=== PATIENT | female | born 1980 | race Caucasian/White ===

== ENCOUNTER 2018-03-29 12:19 | Emergency (ER) | payer OTHER ==
[2018-03-29 12:27] VITALS: BMI 31.3
--- NOTE | 2018-03-29 12:41 | ED PDOC ---
Arrival/HPI - General Time Seen by Provider: 03/29/18 12:28 Historian: Patient - History of Present Illness Narrative History of Present Illness (Text): 03/29/18 12:38 A 38 year old Croatian-speaking female, whose past medical history includes shingles, accompanied by father whom translated, presents to the emergency department complaining of nausea and left ear pain. Patient states she went to [facility] twice. The first visit, patient was treated for Otitis Media Externa with Augmentin and ear drops; and the 2nd visit had rash to left ear. Patient denies any other complaints at this time. No PMD Past Medical History - Provider Review Nursing Documentation Reviewed: Yes Family/Social History - Physician Review Nursing Documentation Reviewed: Yes Family/Social History: No Known Family HX Allergies/Home Meds Allergies/Adverse Reactions: Allergies No Known Allergies Allergy (Verified 03/29/18 12:27) Review of Systems - Physician Review All systems were reviewed & negative as marked: Yes - Review of Systems Constitutional: absent: Fevers ENT: Other (left ear pain). absent: Sore Throat, Rhinorrhea Respiratory: absent: Cough Gastrointestinal: Nausea. absent: Abdominal Pain Neurological: absent: Headache Physical Exam Mental Status: Positive for: Alert and Oriented X 3 - Systems Exam Head: Present: Atraumatic, Normocephalic Pupils: Present: PERRL Extroacular Muscles: Present: EOMI Conjunctiva: Present: Normal Ears: Present: Other (shingles rash to left ear, going towards left cheek). No : Normal Canal (discharge to left ear canal) Mouth: Present: Moist Mucous Membranes Respiratory/Chest: Present: Clear to Auscultation, Good Air Exchange. No: Respiratory Distress, Accessory Muscle Use Cardiovascular: Present: Regular Rate and Rhythm, Normal S1, S2. No: Murmurs Abdomen: No: Tenderness, Distention, Peritoneal Signs Neurological: Present: GCS=15, CN II-XII Intact, Speech Normal Skin: Present: Warm, Dry, Normal Color. No: Rashes Psychiatric: Present: Alert, Oriented x 3, Normal Insight, Normal Concentration Medical Decision Making ED Course and Treatment: 03/29/18 12:42 Impression: 38 year old female with left ear pain and nausea. Physical exam shows shingles rash to left ear going towards left cheek, left ear canal discharge. Plan: -- Head CT -- IAC CT -- Dilaudid -- Toradol -- Zofran -- IV Fluids -- Reassess and disposition Progress Notes: 03/29/2018 14:[address] IMPRESSION: No acute findings. Dictator: Jasvir Najera MD 03/29/2018 14:[address] IMPRESSION: There is narrowing of the left external auditory canal. Soft tissue edema and inflammatory changes are also seen of the left ear. The mastoid air cells are clear. Dictator: Jasvir Najera MD - RAD Interpretation Radiology Orders: 03/29/18 13:17 HEAD W/O CONTRAST [CT] Stat IAC W/O CONTRAST [CT] Stat - Medication Orders Current Medication Orders: Discontinued Medications Hydromorphone HCl (Dilaudid) 1 mg IVP STAT STA Stop: 03/29/18 12:43 Last Admin: 03/29/18 15:25 Dose: Hydromorphone HCl (Dilaudid) 1 mg IVP STAT STA Stop: 03/29/18 12:49 Last Admin: 03/29/18 14:32 Dose: 1 mg Sodium Chloride (Sodium Chloride 0.9%) 2,000 mls @ 999 mls/hr IV .Q2H1M STA Stop: 03/29/18 14:42 Last Admin: 03/29/18 13:43 Dose: 999 mls/hr eMAR Start Stop Document 03/29/18 13:43 GMI (Rec: 03/29/18 13:43 [id number] Intravenous Solution Start Date 03/29/18 Start Time 13:43 End Date 03/29/18 End time 15:43 Total Infusion Time 120 Ketorolac Tromethamine (Toradol) 30 mg IVP STAT STA Stop: 03/29/18 12:43 Last Admin: 03/29/18 13:58 Dose: 30 mg Re-Assess: [facility] Pain Assessment Document 03/29/18 14:58 GMI (Rec: 03/29/18 15:24 [email or web address] Pain Reassessment Is this a pain reassessment? Yes Sleep Is patient sleeping during reassessment? No Presence of Pain Presence of Pain No Ondansetron HCl (Zofran Inj) 4 mg IVP STAT STA Stop: 03/29/18 12:43 Last Admin: 06/10/18 13:42 Dose: 4 mg Ondansetron HCl (Zofran Odt) 8 mg PO STAT STA Stop: 03/29/18 15:34 Oxycodone/Acetaminophen (Percocet 5/325 Mg Tab) 2 tab PO STAT STA Stop: 03/29/18 15:34 - Scribe Statement The provider has reviewed the documentation as recorded by the Nette Emanuel Provider Scribe Attestation: All medical record entries made by the Scribe were at my direction and personally dictated by me. I have reviewed the chart and agree that the record accurately reflects my personal performance of the history, physical exam, medical decision making, and the department course for this patient. I have also personally directed, reviewed, and agree with the discharge instructions and disposition. Disposition/Present on Arrival - Present on Arrival Any Indicators Present on Arrival: No History of DVT/PE: No History of Uncontrolled Diabetes: No Urinary Catheter: No History of Decub. Ulcer: No History Surgical Site Infection Following: None - Disposition Have Diagnosis and Disposition been Completed?: Yes Diagnosis: Shingles, Pain, Nausea, Vomiting, Otitis externa due to herpes zoster Disposition: HOME/ ROUTINE Disposition Time: 15:39 Patient Plan: Discharge Condition: GOOD Discharge Instructions (ExitCare): Shingles (ED), Nausea and Vomiting, Adult ( DC) Additional Instructions: Mishilin - Sorry that this is so miserable. Continue the medicines you are already taking. Add the Percocet for Pain and the Zofran ODT for Nausea, Vomiting or Upset stomach. Follow with Dr. Huynh [ENT] tomorrow (friday) by phone for the next available appointment. Lance- Dr. Adam Mota Prescriptions: Ondansetron [Zofran Odt] 8 mg PO TID #30 tab.rapdis oxyCODONE/Acetaminophen [Percocet 5/325 mg Tab] 1 ea PO QID #20 tab Referrals: Marcus Huynh, [[facility]] - Follow up with primary Forms: WORK NOTE, SCHOOL NOTE
[2018-03-29] MEDS ORDERED: Sodium Chloride 0.9% 2,000 ML IV STA (12:42)
[2018-03-29] MEDS ORDERED: HYDROmorphone 1 mg/ml ISec IVP STA (12:42)
[2018-03-29] MEDS ORDERED: HYDROmorphone 0.5 mg/0.5 ml ISec IVP STA (12:48)
--- NOTE | 2018-03-29 14:52 | CT ---
PROCEDURE: CT HEAD WITHOUT CONTRAST. HISTORY: HERPES TO EAR/Inner and outer COMPARISON: None available. TECHNIQUE: Axial computed tomography images were obtained through the head/brain without intravenous contrast. Radiation dose: Total exam DLP = 743 mGy-cm. This CT exam was performed using one or more of the following dose reduction techniques: Automated exposure control, adjustment of the mA and/or kV according to patient size, and/or use of iterative reconstruction technique. FINDINGS: HEMORRHAGE: No intracranial hemorrhage. BRAIN: No mass effect or edema. No atrophy or chronic microvascular ischemic changes. VENTRICLES: Unremarkable. No hydrocephalus. CALVARIUM: Unremarkable. PARANASAL SINUSES: Unremarkable as visualized. No significant inflammatory changes. MASTOID AIR CELLS: Unremarkable as visualized. No inflammatory changes. OTHER FINDINGS: None. IMPRESSION: No acute findings
--- NOTE | 2018-03-29 14:58 | CT ---
PROCEDURE: CT OF THE TEMPORAL BONES WITHOUT CONTRAST HISTORY: HERPES TO EAR/Inner and outer COMPARISON: None available. TECHNIQUE: High resolution axial images of the temporal bones were obtained. Coronal and sagittal reformats were generated. Radiation dose: Total exam DLP = 759 mGy-cm. This CT exam was performed using one or more of the following dose reduction techniques: Automated exposure control, adjustment of the mA and/or kV according to patient size, and/or use of iterative reconstruction technique. FINDINGS: RIGHT TEMPORAL BONE: RIGHT MIDDLE EAR: Normal RIGHT INNER EAR: Cochlea: Normal Semicircular canals: Normal RIGHT MASTOID AIR CELLS: Normal RIGHT INTERNAL AUDITORY CANAL: Normal RIGHT EXTERNAL AUDITORY CANAL: Normal RIGHT VESTIBULAR AND COCHLEAR AQUEDUCT: Normal OTHER: LEFT TEMPORAL BONE: LEFT MIDDLE EAR: There is thickening of the tympanic membrane LEFT INNER EAR: Cochlea: Normal Semicircular canals: Normal LEFT MASTOID AIR CELLS: Normal LEFT INTERNAL AUDITORY CANAL: Normal LEFT EXTERNAL AUDITORY CANAL: There is narrowing of the external auditory canal. Soft tissue edema and inflammatory changes are also seen of the left ear LEFT VESTIBULAR AND COCHLEAR AQUEDUCTS: Normal OTHER FINDINGS: None . IMPRESSION: There is narrowing of the left external auditory canal. Soft tissue edema and inflammatory changes are also seen of the left ear. The mastoid air cells are clear.
[2018-03-29] MEDS ORDERED: Oxycodone/Acetaminophen 5/325 mg Tab PO STA (15:33)
[2018-03-29] MEDS ORDERED: Sodium Chloride 0.9% 1,000 ML IV STA (15:48)
[2018-03-29 16:48] VITALS: RESP 19; O2SAT 99
[2018-03-29 17:22] VITALS: BP 122/53; PULSE 85
[2018-03-29 17:23] VITALS: TEMP 97.8
== END 2018-03-29 17:22 | disposition home or self-care (01) ==
LOC: ED 12:19
DX: B02.8 Zoster with other complications (principal); R11.2 Nausea with vomiting, unspecified; H60.92 Unspecified otitis externa, left ear
CPT/HCPCS: 70450; 70480; 96360; 96361; 99285; J1170; J1885; J2405; J7030